=== PATIENT | male | born 1980 | race Caucasian/White ===

== ENCOUNTER 2024-03-15 08:14 | Inpatient (IN) | payer SELFPAY ==
[~2024-03-15] VITALS: Ht 175.3 cm; Wt 62.6 kg
[2024-03-15 08:16] VITALS: O2SAT 98
[2024-03-15 09:42] LABS: HEMATOCRIT. 35.8 % (42.0-52.0); HEMOGLOBIN. 12.2 g/dL (14.0-18.0); MEAN CORPUSCULAR HGB CONC 34.1 g/dL (31.0-37.0); MEAN CORPUSCULAR VOLUME 87.9 fL (80.0-94.0); MEAN PLATELET VOLUME 10.2 fl (7.4-10.4); PLATELET 71 x1000/uL (130-400); RED BLOOD CELL COUNT 4.08 mill/uL (4.7-6.1); RED CELL DISTRIBUTION WIDTH 13.6 % (11.6-14.6); WHITE BLOOD COUNT 9.1 x1000/uL (4.5-11.0)
[2024-03-15] MEDS: CEFTRIAXONE 1GM/50ML 50 ML IV ONE (09:49)
[2024-03-15 09:50] LABS: CHLORIDE 95 mEq/L (98-107); POTASSIUM 4.1 mEq/L (3.5-5.1); SODIUM 128 mEq/L (136-145)
[2024-03-15 09:51] LABS: CALCIUM 8.6 mg/dL (8.7-10.4); CARBON DIOXIDE 25 mEq/L (21-32)
[2024-03-15] MEDS: ACETAMINOPHEN 500MG TABLET PO ONE (09:51)
[2024-03-15] MEDS: SODIUM CHLORIDE 0.9% (SEPSIS BOLUS) IV ONE (09:52)
[2024-03-15 09:56] LABS: GLUCOSE 119 mg/dL (70-105); UREA NITROGEN BLOOD 27 mg/dL (9-23)
[2024-03-15 09:57] LABS: LACTIC ACID 2.8 mmol/L (0.4-2.0)
[2024-03-15 09:58] LABS: ALBUMIN 3.6 g/dL (3.2-4.8); ASPARTATE AMINOTRANSFERASE 274 IU/L (<34); BILIRUBIN TOTAL 0.6 mg/dL (0.1-1.0); PROTEIN TOTAL 6.6 g/dL (6.0-8.3)
[2024-03-15 09:59] LABS: ETHANOL BLOOD < 10 mg/dL (<10)
[2024-03-15 10:00] LABS: ALANINE AMINOTRANSFERASE 120 IU/L (10-49)
[2024-03-15 10:05] LABS: DIFFERENTIAL COMMENT 1
[2024-03-15 11:30] LABS: PLATELET ESTIMATE DECREASED
[2024-03-15 14:54] LABS: CLARITY URINE CLEAR (CLEAR); COLOR URINE DARK YELLOW (YELLOW); GLUCOSE URINE NEGATIVE (NEGATIVE); KETONES URINE NEGATIVE (NEGATIVE); LEUKOCYTE ESTERASE URINE NEGATIVE (NEGATIVE); NITRITE URINE NEGATIVE (NEGATIVE); OCCULT BLOOD URINE 2+ (NEGATIVE); PH URINE 5.5 (4.5-8.0); PROTEIN URINE 3+ (NEGATIVE); SPECIFIC GRAVITY URINE 1.028 (1.005-1.030)
[2024-03-15] MEDS ORDERED: CLONIDINE 0.1MG TABLET PO PRN (15:00)
[2024-03-15] MEDS ORDERED: IPRATROPIUM/ALBUTEROL 0.5-3(2.5)MG/3ML NEB HHN PRN (15:00)
[2024-03-15] MEDS ORDERED: CEFEPIME 2GM IN DEXT 5% 100ML IV SCH (15:00)
[2024-03-15 15:06] LABS: AMORPHOUS SEDIMENT URINE 1+ /lpf; BACTERIA URINE NONE SEEN; COARSE GRANULAR CASTS URINE 0-5 /lpf; RBC URINE 0-2 /hpf (0-2); SQUAMOUS EPITHELIAL CELL URINE RARE /lpf (RARE/1+); WBC URINE 0-2 /hpf (0-2); YEAST URINE NONE SEEN
[2024-03-15 15:24] LABS: *AMPHETAMINES SCREEN URINE PRESUMPTIVE POSITIVE (NEGATIVE); *BARBITURATES SCREEN URINE NEGATIVE (NEGATIVE); *BENZODIAZEPINES SCREEN URINE NEGATIVE (NEGATIVE); *COCAINE SCREEN URINE NEGATIVE (NEGATIVE); CANNABINOID URINE SCREEN NEGATIVE (NEGATIVE); ECSTASY MDMA SCREEN URINE NEGATIVE (NEGATIVE); METHADONE URINE SCREEN NEGATIVE (NEGATIVE); OPIATES URINE SCREEN NEGATIVE (NEGATIVE); PHENCYCLIDINE URINE SCREEN NEGATIVE (NEGATIVE)
[2024-03-15 15:48] VITALS: BP 120/63; PULSE 100; RESP 19; TEMP 37.252
[2024-03-15] MEDS: CEFEPIME 2GM/100ML 100 ML IV SCH (16:00)
[2024-03-15] MEDS: DOXYCYCLINE 100MG/100ML 100 ML IV SCH (17:00)
[2024-03-15 20:00] VITALS: BP 125/66; PULSE 130; RESP 20; TEMP 38.00304; O2SAT 95
[2024-03-15 20:57] LABS: IRON 22 ug/dL (65-175)
[2024-03-15 21:00] LABS: TOTAL IRON BINDING CAPACITY 336 ug/dl (250-425)
[2024-03-15 21:08] LABS: PREALBUMIN < 5.0 mg/dl (10.0-40.0)
[2024-03-15 22:20] LABS: TROPONIN I HIGH SENSITIVITY 51 ng/L (3.0-53)
[2024-03-15 22:21] LABS: LACTIC ACID 2.7 mmol/L (0.4-2.0)
[2024-03-15 22:32] LABS: CREATINE KINASE 1531 IU/L (46-171)
[2024-03-16] VITALS: BP 117/72; PULSE 107; RESP 18; TEMP 38.66976; O2SAT 98
[2024-03-16] MEDS: SODIUM CHLORIDE 0.9% 1,000 ML IV SCH (00:03)
[2024-03-16] MEDS: ACETAMINOPHEN 325MG TABLET PO PRN (00:13)
[2024-03-16 04:00] VITALS: BP 104/63; PULSE 102; RESP 20; TEMP 37.44744; O2SAT 96
[2024-03-16] MEDS: PANTOPRAZOLE SODIUM 40 MG/VIAL IV SCH (09:00)
[2024-03-16] MEDS: ASCORBIC ACID 250 MG TABLET PO SCH (09:46)
[2024-03-16] MEDS: ONDANSETRON HCL 4MG/2ML INJ IV PRN (09:46)
[2024-03-16 10:33] LABS: HEMATOCRIT. 30.7 % (42.0-52.0); HEMOGLOBIN. 10.4 g/dL (14.0-18.0); MEAN CORPUSCULAR HEMOGLOBIN 29.9 pg (28.0-32.0); MEAN CORPUSCULAR VOLUME 87.8 fL (80.0-94.0); MEAN PLATELET VOLUME 11.6 fl (7.4-10.4); PLATELET 52 x1000/uL (130-400); RED BLOOD CELL COUNT 3.49 mill/uL (4.7-6.1); RED CELL DISTRIBUTION WIDTH 13.9 % (11.6-14.6); WHITE BLOOD COUNT 6.2 x1000/uL (4.5-11.0)
[2024-03-16 10:42] LABS: CARBON DIOXIDE 22 mEq/L (21-32); CHLORIDE 99 mEq/L (98-107); POTASSIUM 4.8 mEq/L (3.5-5.1); SODIUM 130 mEq/L (136-145)
[2024-03-16 10:48] LABS: GLUCOSE 96 mg/dL (70-105); UREA NITROGEN BLOOD 22 mg/dL (9-23)
[2024-03-16 10:50] LABS: PHOSPHORUS 2.6 mg/dL (2.5-4.9)
[2024-03-16 10:55] LABS: DIFFERENTIAL COMMENT 1
[2024-03-16 12:00] VITALS: BP_SYST 73; BP_SYST 91; BP_DIAS 43; BP_DIAS 53; PULSE 102; PULSE 99; RESP 18; TEMP 36.3918; TEMP 36.50292; O2SAT 95; O2SAT 99
[2024-03-16] MEDS: MAGNESIUM 2 G PREMIX 50 ML IV NR (12:30)
[2024-03-16] MEDS: SODIUM CHLORIDE 0.9% (SEPSIS BOLUS) IV NR (13:37)
[2024-03-16 16:44] LABS: PLATELET ESTIMATE NORMAL
[2024-03-16 18:40] LABS: HEPATITIS B SURFACE ANTIGEN NEGATIVE (Negative)
[2024-03-16 19:00] LABS: HEPATITIS A AB IGM NEGATIVE (Negative); HEPATITIS B CORE AB IGM NEGATIVE (Negative)
[2024-03-16 19:01] LABS: HEPATITIS C AB REACTIVE (Pos) (Negative)
[2024-03-17] VITALS: BP 131/93; PULSE 90; RESP 17; TEMP 36.3918; O2SAT 99
[2024-03-17 04:00] VITALS: BP 98/60; PULSE 114; RESP 20; TEMP 36.78072; O2SAT 97
[2024-03-17 09:00] VITALS: BP 109/60; PULSE 113; RESP 20; TEMP 36.72516; O2SAT 97
[2024-03-17] MEDS ORDERED: SODIUM CHLORIDE 0.9% 500 ML IV ONE (09:15)
[2024-03-17] MEDS ORDERED: LORATADINE 10MG TABLET PO SCH (09:45)
[2024-03-17 11:34] LABS: THYROID STIMULATING HORMONE 2.87 uIU/mL (0.55-4.78)
[2024-03-17] MEDS: KETOROLAC 15MG/ML VIAL IV PRN (11:44)
[2024-03-17 11:57] VITALS: BP 129/69; PULSE 107; RESP 19; TEMP 36.78072; O2SAT 98
[2024-03-17] MEDS ORDERED: FERROUS SULFATE 325MG TABLET PO SCH (17:50)
[2024-03-17] MEDS ORDERED: MELATONIN 3MG TABLET PO PRN (21:00)
== END 2024-03-17 16:31 | disposition left against medical advice (07) | DRG 720 ==
LOC: ER 08:14 → 5WST 13:38 → EDBEDREQ 13:42 → EDBEDREQTM 13:42 → 6EST 15:52
PROVIDERS: ADMIT Internal Medicine; ATTEND Internal Medicine
DX: A41.9 Sepsis, unspecified organism (principal); E87.20 Acidosis, unspecified; D69.6 Thrombocytopenia, unspecified; M62.82 Rhabdomyolysis; E46 Unspecified protein-calorie malnutrition; E87.1 Hypo-osmolality and hyponatremia; R79.89 Other specified abnormal findings of blood chemistry; D50.9 Iron deficiency anemia, unspecified; E86.0 Dehydration; Z20.822 Contact with and (suspected) exposure to COVID-19; F15.13 Other stimulant abuse with withdrawal; F17.210 Nicotine dependence, cigarettes, uncomplicated; E83.42 Hypomagnesemia; Z53.29 Procedure and treatment not carried out because of patient's decision for other reasons; Z86.79 Personal history of other diseases of the circulatory system; Z88.1 Allergy status to other antibiotic agents; Z59.00 Homelessness unspecified; Z79.899 Other long term (current) drug therapy; Z68.20 Body mass index [BMI] 20.0-20.9, adult
CPT/HCPCS: 36415; 71045; 76700; 80048; 80053; 80305; 80320; 81003; 82550; 82607; 82746; 83036; 83540; 83550; 83605; 83735; 84100; 84134; 84145; 84443; 84484; 85025; 85651; 86592; 86705; 86709; 87340; 87426; 87804; 93005; 93970; 97161; 97166; 99291; J0692; J0696; J1885; J2405; J2470; J3475; J3490; J7030; G0480